=== PATIENT | female | born 1975 | race Caucasian/White ===

== ENCOUNTER 2019-08-15 19:08 | Emergency (ER) | payer SELFPAY ==
[~2019-08-15] VITALS: Ht 154.9 cm; Wt 68.0 kg
--- NOTE | 2019-08-15 19:08 | NUR ---
PT AMBULATED FROM [facility] TO [facility].
[2019-08-15 19:19] VITALS: BP 152/71
[2019-08-15] MEDS ORDERED: DIAZEPAM 5 MG TAB PO ONE (19:20)
--- NOTE | 2019-08-15 19:23 | NUR ---
PT TAKEN TO RADIOLOGY IN WHEEL CHAIR
--- NOTE | 2019-08-15 19:31 | NUR ---
PT AMBULATED TO ER BED 05
--- NOTE | 2019-08-15 19:34 | NUR ---
[employer] AT BEDSIDE INTERVIEWING PT
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
[2019-08-15 20:50] LABS: BASOPHILS # (AUTO) 0.1 K/uL (0.00-0.22); BASOPHILS % (AUTO) 0.7 % (0.0-2.0); EOSINOPHILS # (AUTO) 0.1 K/uL (0-0.4); EOSINOPHILS % (AUTO) 1.6 % (0.0-4.0); HEMATOCRIT 36.4 % (36-48); LYMPHOCYTES # (AUTO) 2.5 K/uL (2.5-16.5); LYMPHOCYTES % (AUTO) 28.9 % (20.5-51.1); MEAN CORPUSCULAR HEMOGLOBIN 29 pg (27-31); MEAN CORPUSCULAR HGB CONC 33 g/dL (33-37); MONOCYTES # (AUTO) 0.5 K/uL (0.8-1.0); MONOCYTES % (AUTO) 5.3 % (1.7-9.3); NEUTROPHILS # (AUTO) 5.5 K/uL (1.8-7.7); NEUTROPHILS % (AUTO) 63.5 % (42.2-75.2); PLATELET COUNT (AUTO) 328 K/uL (140-450); RED BLOOD CELL COUNT(AUTO) 4.23 MIL/uL (4.20-5.40); RED CELL DISTRIBUTION WIDTH 13.8 % (11.6-13.7); WHITE BLOOD COUNT (AUTO) 8.7 K/uL (4.8-10.8)
[2019-08-15 21:07] LABS: CARBON DIOXIDE 28.3 mmol/L (21-32); CREATININE 0.6 mg/dL (0.6-1.3); POTASSIUM 3.3 mmol/L (3.5-5.1)
--- NOTE | 2019-08-15 22:25 | NUR ---
Nay steward in ED - 08/15/19 at 2229 by [email or web address] Patient discharged with v/s stable. Written and verbal after care instructions given and explained. Patient verbalized understanding. Ambulatory with steady gait. All questions addressed prior to discharge. Advised to follow up with PMD.
[2019-08-15 22:28] VITALS: BP 136/86
--- NOTE | 2019-08-15 22:28 | NUR ---
Patient discharged with v/s stable. Written and verbal after care instructions given and explained. Patient verbalized understanding. Ambulatory with steady gait. All questions addressed prior to discharge. Advised to follow up with PMD.
== END 2019-08-15 22:28 | disposition home or self-care (01) ==
LOC: MED 19:08
DX: F41.9 Anxiety disorder, unspecified (principal); R42 Dizziness and giddiness; J45.909 Unspecified asthma, uncomplicated; E07.9 Disorder of thyroid, unspecified
CPT/HCPCS: 36415; 71045; 80048; 84484; 85025; 93005; 99284

== ENCOUNTER 2019-11-06 09:00 | Emergency (ER) | payer MEDICAID ==
[~2019-11-06] VITALS: Ht 154.9 cm; Wt 68.0 kg
[2019-11-06 09:06] VITALS: BP 146/91
[2019-11-06] MEDS ORDERED: ONDANSETRON 4 MG/2 ML VIAL IVP ONE (09:30)
[2019-11-06] MEDS ORDERED: KETOROLAC 30 MG/ML VIAL IVP ONE (09:30)
[2019-11-06] MEDS ORDERED: NACL 0.9% 1,000 ML IV ONE (09:30)
--- NOTE | 2019-11-06 10:09 | NUR ---
PT TO X-RAY BY WHEELCHAIR.
[2019-11-06 10:10] LABS: APPEARANCE,URINE CLEAR (CLEAR); BILIRUBIN,URINE NEGATIVE (NEGATIVE); BLOOD, URINE TRACE-I (NEGATIVE); COLOR,URINE YELLOW (YELLOW); LEUKOCYTE ESTERASE ,URINE NEGATIVE (NEGATIVE); NITRITE, URINE NEGATIVE (NEGATIVE); UGLUCOSE NEGATIVE (NEGATIVE)
[2019-11-06 10:21] LABS: WBC,URINE 0-5 /HPF (0-5)
--- NOTE | 2019-11-06 10:22 | NUR ---
PT AMBULATED TO RESTOOM WITHOUT DIFFICULTY.
--- NOTE | 2019-11-06 10:52 | NUR ---
PT STATES SHE HAS NO PAIN OR NAUSEA AFTER MEDICATIONS GIVEN. RESTING COMFORTABLY, MOTHER AT BEDSIDE.
[2019-11-06 11:03] VITALS: BP 146/91
== END 2019-11-06 11:04 | disposition home or self-care (01) ==
LOC: MED 09:00
DX: R10.9 Unspecified abdominal pain (principal); M54.9 Dorsalgia, unspecified; J45.909 Unspecified asthma, uncomplicated; E07.9 Disorder of thyroid, unspecified; Z90.710 Acquired absence of both cervix and uterus
CPT/HCPCS: 74176; 81001; 96374; 96375; 99284; J1885; J2405; J7030